=== PATIENT | female | born 1960 | race Caucasian/White ===

== ENCOUNTER 2022-11-09 08:00 | Outpatient (CLI) | payer OTHER, BC ==
--- NOTE | 2022-11-09 19:12 | XRAY Report ---
PROCEDURE: Wrist 3 View RT INDICATIONS: RIGHT WRIST PAIN TECHNIQUE: 3 views of the wrist were acquired. COMPARISON: None. FINDINGS: Bones: There is an impacted, comminuted fracture seen of the distal radius, with intra-articular inv olvement. This is best seen on the lateral image. No definite associated ulnar sided fracture can be seen. Age-appropriate degenerative changes are seen. Soft tissues: No suspicious soft tissue calcifications or masses. IMPRESSION: Distal radius fracture, with impaction and intra-articular involvement. If it would be helpful for clinical management decision making, please consider a dedicated wrist CT for further evaluation. Reviewed by: Leo Barclay MD on 11/09/2022 6:11 PM BR[facility]GER Approved by: Leo Barclay MD on 11/09/2022 6:11 PM BRIDGER Station ID: [id number]
== END 2022-11-09 23:59 | disposition home or self-care (01) ==
LOC: DI.S 08:00
PROVIDERS: ATTEND Emergency Medicine
DX: S52.571A Other intraarticular fracture of lower end of right radius, initial encounter for closed fracture (principal); M19.031 Primary osteoarthritis, right wrist